=== PATIENT | female | born 1985 | race American Indian/Alaskan Native ===

== ENCOUNTER 2016-09-08 14:46 | Emergency (ER) | payer MEDICAID, OTHER ==
[2016-09-08 14:46] VITALS: BMI 26.4
[2016-09-08 14:57] VITALS: RESP 18; O2SAT 100
[2016-09-08] MEDS ORDERED: Sodium Chloride 0.9% 1,000 ML IV ONE (15:45)
--- NOTE | 2016-09-08 16:19 | C.PDOC ---
History Of Present Illness 31 year old patient, with a past medical history of Sifuentes's Syndrome, presents to the emergency department complaining of generally not feeling well, nausea and weakness for the past few days. Patient also complaining of nasal congestion from her seasonal allergies. Patient states she has an irregular period recently and lots of stress that she is dealing with. She's had similar symptoms before when she was stressed out. Patient denies fever, chills, headache, sore throat, shortness of breath, chest pain, abdominal pain, dysuria , vomiting, or dizziness. Time Seen by Provider: 09/08/16 15:34 Chief Complaint (Nursing): GI Problem History Per: Patient History/Exam Limitations: no limitations Onset/Duration Of Symptoms: Days (past few) Current Symptoms Are (Timing): Still Present Severity: Mild Pain Scale Rating Of: 3 Recent travel outside of the [place] States: No Past Medical History Reviewed: Historical Data, Nursing Documentation, Vital Signs Vital Signs: Last Vital Signs Temp 98.3 F 09/08/16 17:22 Pulse 82 09/08/16 17:22 Resp 18 09/08/16 17:22 BP 120/83 09/08/16 17:22 Pulse Ox 100 09/08/16 17:22 - [facility] Procedures OTHER SKIN & SUBQ I D (06/21/14) Family History: States: Unknown Family Hx - Social History Hx Tobacco Use: Yes (3-4 cigarettes a day) Hx Alcohol Use: Yes Hx Substance Use: No - Immunization History Hx Tetanus Toxoid Vaccination: No Hx Influenza Vaccination: Yes Hx Pneumococcal Vaccination: No Review Of Systems Except As Marked, All Systems Reviewed And Found Negative. Constitutional: Positive for: Weakness. Negative for: Fever, Chills ENT: Negative for: Throat Pain Cardiovascular: Negative for: Chest Pain Respiratory: Negative for: Shortness of Breath Gastrointestinal: Positive for: Nausea. Negative for: Vomiting, Abdominal Pain Genitourinary: Negative for: Dysuria Neurological: Negative for: Headache, Dizziness Physical Exam - Physical Exam Appears: Non-toxic, No Acute Distress Skin: Warm, Dry Head: Atraumatic, Normacephalic Eye(s): bilateral: Normal Inspection, EOMI Nose: Other (nasal congestion) Oral Mucosa: Moist Throat: Normal Neck: Normal ROM, Supple Chest: Symmetrical Cardiovascular: Rhythm Regular Respiratory: Normal Breath Sounds, No Rales, No Rhonchi, No Wheezing Gastrointestinal/Abdominal: Soft, No Tenderness, No Guarding, No Rebound Back: Normal Inspection, No CVA Tenderness Extremity: Normal ROM Neurological/Psych: Oriented x3, Normal Speech, Normal Cognition Gait: Steady ED Course And Treatment - Laboratory Results Result Diagrams: 09/08/16 16:28 09/08/16 16:28 O2 Sat by Pulse Oximetry: 100 (room air ) Pulse Ox Interpretation: Normal Progress Note: Plan: -Labs. -IV fluids Medical Decision Making Medical Decision Making: Patiuent feeling better. Has low WBC count. 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 Will d/c to follow up with PMD. Disposition Counseled Patient/Family Regarding: Studies Performed, Need For Followup - Disposition Disposition: HOME/ ROUTINE Disposition Time: 17:25 Condition: IMPROVED Additional Instructions: Please follow up with your doctor. Get extra rest, drink plenty fluids. Return to the ED with any other concerns. Instructions: Weakness (GEN) Forms: General Discharge Instructions - POA Present On Arrival: None - Clinical Impression Clinical Impression: Malaise and fatigue - Scribe Statement The provider has reviewed the documentation as recorded by the Nic Biswas Provider Attestation: All medical record entries made by the Manoloibe were at my direction and personally dictated by me. I have reviewed the chart and agree that the record accurately reflects my personal performance of the history, physical exam, medical decision making, and the department course for this patient. I have also personally directed, reviewed, and agree with the discharge instructions and disposition.
[2016-09-08 16:34] LABS: EOS # 0.1 K/uL (0.0-0.7); EOS % 5.4 % (0.0-4.0); HEMATOCRIT 38.1 % (34.0-47.0); LYMPH # 1.1 K/uL (1.0-4.3); LYMPH % 52.6 % (20.0-40.0); MEAN CELL VOLUME 84.8 fL (81.0-99.0); MEAN CORPUSCULAR HEMOGLOBIN 28.1 pg (27.0-31.0); MEAN CORPUSCULAR HGB CONC 33.1 g/dL (33.0-37.0); MEAN PLATELET VOLUME 8.4 fL (7.2-11.7); MONO # 0.5 K/uL (0.0-0.8); PLATELET COUNT 262 K/uL (130-400); RED CELL DISTRIBUTION WIDTH 14.2 % (11.5-14.5)
[2016-09-08 16:43] LABS: RBC URINE 61 /hpf (0-3); URINE BACTERIA MOD (<OCC); URINE BILIRUBIN NEGATIVE (NEGATIVE); URINE BLOOD 3+ (NEGATIVE); URINE COLOR Yellow (YELLOW); URINE GLUCOSE (UA) NORMAL (Normal); URINE KETONE TRACE mg/dL (NEGATIVE); URINE LEUKOCYTE ESTERASE NEG Leu/uL (Negative); URINE PROTEIN 1+ mg/dL (NEGATIVE); URINE UROBILINOGEN NORMAL mg/dL (0.2-1.0)
[2016-09-08 16:44] LABS: WBC URINE 5 /hpf (0-5)
[2016-09-08 16:51] LABS: CHLORIDE 103 mmol/L (98-107)
[2016-09-08 16:52] LABS: POTASSIUM 3.7 mmol/L (3.6-5.2); SODIUM 139 mmol/L (132-148)
[2016-09-08 16:54] LABS: GFR AFRICAN-AMERICAN > 60
[2016-09-08 16:55] LABS: BLOOD UREA NITROGEN 14 mg/dL (7-17); CALCIUM 8.6 mg/dl (8.6-10.4); CARBON DIOXIDE 27 mmol/L (22-30); GLUCOSE,RANDOM 72 mg/dL (65-105)
[2016-09-08 17:23] VITALS: BP 120/83; PULSE 82; TEMP 98.3
[2016-09-08 18:08] LABS: BASOPHIL 1 % (0-2); EOSINOPHIL 5 % (0-4); NEUTROPHIL 18 % (50-75); REACTIVE LYMPHOCYTES 1 % (0-0); TOTAL CELLS COUNTED 100
== END 2016-09-08 17:58 | disposition home or self-care (01) ==
LOC: C.ER 14:46
DX: R53.81 Other malaise (principal); R53.83 Other fatigue
CPT/HCPCS: 80048; 81001; 84703; 85025; 96360; 99285; J7040

== ENCOUNTER 2016-10-22 14:26 | Emergency (ER) | payer MEDICAID, OTHER ==
[2016-10-22 14:26] VITALS: BMI 26.4
--- NOTE | 2016-10-22 15:24 | C.PDOC ---
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 No change with PO intake or cough. States she has never had it evaluated in the past. Patient denies fevers, cough, shortness of breath, nausea/vomiting, or any other associated symptoms. No other complaints at this time. Chief Complaint (Nursing): Chest Pain History Per: Patient History/Exam Limitations: no limitations Current Symptoms Are (Timing): Still Present Severity: Moderate Past Medical History Reviewed: Historical Data, Nursing Documentation, Vital Signs Vital Signs: Last Vital Signs Temp 98.5 F 10/22/16 17:08 Pulse 87 10/22/16 17:08 Resp 18 10/22/16 17:08 BP 126/82 10/22/16 17:08 Pulse Ox 96 10/22/16 17:08 - [facility] Procedures OTHER SKIN & SUBQ I D (06/21/14) Family History: States: No Known Family Hx - Social History Hx Tobacco Use: Yes (3-4 cigarettes a day) Hx Alcohol Use: Yes Hx Substance Use: No - Immunization History Hx Tetanus Toxoid Vaccination: No Hx Influenza Vaccination: Yes Hx Pneumococcal Vaccination: No Review Of Systems Except As Marked, All Systems Reviewed And Found Negative. Constitutional: Negative for: Fever, Chills Cardiovascular: Positive for: Chest Pain. Negative for: Palpitations Respiratory: Negative for: Cough, Shortness of Breath Gastrointestinal: Negative for: Nausea, Vomiting Musculoskeletal: Negative for: Back Pain Physical Exam - Physical Exam Appears: Non-toxic, No Acute Distress Skin: Warm, Dry, No Rash Head: Atraumatic, Normacephalic Eye(s): bilateral: Normal Inspection, PERRL, EOMI Nose: Normal Throat: Normal Neck: Normal Cardiovascular: Rhythm Regular Respiratory: Normal Breath Sounds Gastrointestinal/Abdominal: Normal Exam Back: Normal Inspection Extremity: Normal ROM ED Course And Treatment - Laboratory Results Result Diagrams: 10/22/16 15:26 10/22/16 15:26 ECG: Interpreted By Me, Viewed By Me ECG Rhythm: Sinus Rhythm ECG Interpretation: No Acute Changes Rate From EC Disposition - Disposition Referrals: Deborah Guallpa, [Non-Staff] - Disposition: HOME/ ROUTINE Disposition Time: 16:45 Condition: GOOD Additional Instructions: Thank you for letting us take care of you today. Your provider was Dr. Syed. You were treated for noncardiac chest pain. The emergency medical care you received today was directed at your acute symptoms. If you were prescribed any medication, please fill it and take as directed. It may take several days for your symptoms to resolve. Return to the Emergency Department if your symptoms worsen, do not improve, or if you have any other problems. Please contact your doctor or call one of the physicians/clinics you have been referred to that are listed on the Patient Visit Information form that is included in your discharge packet. Bring any paperwork you were given at discharge with you along with any medications you are taking to your follow up visit. Our treatment cannot replace ongoing medical care by a primary care provider (PCP) outside of the emergency department. Thank you for allowing the [facility] team to be part of your care today. Follow up with your doctor in 2-3 days for re-evaluation. Instructions: Noncardiac Chest Pain (ED) - Clinical Impression Clinical Impression: Non-cardiac chest pain - Scribe Statement The provider has reviewed the documentation as recorded by the Nic Cunha All medical record entries made by the Manoloibleonel were at my direction and personally dictated by me. I have reviewed the chart and agree that the record accurately reflects my personal performance of the history, physical exam, medical decision making, and the department course for this patient. I have also personally directed, reviewed, and agree with the discharge instructions and disposition.
[2016-10-22 15:34] LABS: BASO % 0.9 % (0.0-2.0); EOS # 0.1 K/uL (0.0-0.7); EOS % 7.4 % (0.0-4.0); HEMATOCRIT 35.8 % (34.0-47.0); LYMPH # 0.8 K/uL (1.0-4.3); LYMPH % 48.1 % (20.0-40.0); MEAN CELL VOLUME 84.8 fL (81.0-99.0); MEAN CORPUSCULAR HEMOGLOBIN 28.2 pg (27.0-31.0); MEAN CORPUSCULAR HGB CONC 33.2 g/dL (33.0-37.0); MEAN PLATELET VOLUME 8.3 fL (7.2-11.7); MONO # 0.3 K/uL (0.0-0.8); MONO % 22.3 % (0.0-10.0); NRBC % 0.1 % (0.0-2.0); PLATELET COUNT 206 K/uL (130-400); RED CELL DISTRIBUTION WIDTH 13.5 % (11.5-14.5)
[2016-10-22 15:42] LABS: WHITE BLOOD COUNT 1.6 K/uL (4.8-10.8)
[2016-10-22 15:46] LABS: CHLORIDE 101 mmol/L (98-107); POTASSIUM 3.8 mmol/L (3.6-5.2); SODIUM 136 mmol/L (132-148)
[2016-10-22 15:48] LABS: AST/SGOT 21 U/L (14-36); BILIRUBIN,TOTAL 0.7 mg/dL (0.2-1.3); CARBON DIOXIDE 26 mmol/L (22-30); GFR AFRICAN-AMERICAN > 60
[2016-10-22 15:49] LABS: ALB/GLOB RATIO 1.1 (1.0-2.1); ALKALINE PHOSPHATASE 78 U/L (38-126); ALT/SGPT 24 U/L (9-52); BLOOD UREA NITROGEN 13 mg/dL (7-17); CALCIUM 8.5 mg/dl (8.6-10.4); GLUCOSE,RANDOM 74 mg/dL (65-105); TOTAL PROTEIN 6.7 g/dL (6.3-8.3)
--- NOTE | 2016-10-22 15:58 | RAD ---
HISTORY: chest pain COMPARISON: Chest x-ray performed 07/21/14 TECHNIQUE: Chest, one view. FINDINGS: LUNGS: The right costophrenic angle is excluded from view. No focal consolidation. Please note that chest x-ray has limited sensitivity for the detection of pulmonary masses. PLEURA: No significant pleural effusion identified. No definite pneumothorax . CARDIOVASCULAR: The cardiomediastinal silhouette appears within normal limits of size. OSSEOUS STRUCTURES: No acute osseous abnormality identified. VISUALIZED UPPER ABDOMEN: Unremarkable. OTHER FINDINGS: None. IMPRESSION: No focal consolidation, significant pleural effusion, or definite pneumothorax identified.
[2016-10-22 16:00] LABS: BASOPHIL 2 % (0-2); EOSINOPHIL 6 % (0-4); NEUTROPHIL 24 % (50-75); TOTAL CELLS COUNTED 50
[2016-10-22 17:09] VITALS: BP 126/82; PULSE 87; RESP 18; TEMP 98.5; O2SAT 96
--- NOTE | 2016-10-25 08:41 | CARD ---
APPROVED REPORT EKG Measurement Heart [id number] <Conclusion> Normal sinus rhythm Normal ECG
== END 2016-10-22 17:09 | disposition home or self-care (01) ==
LOC: C.ER 14:26
DX: R07.89 Other chest pain (principal)

== ENCOUNTER 2017-02-15 21:02 | Emergency (ER) | payer OTHER ==
[2017-02-15 21:03] VITALS: BMI 26.4
[2017-02-15 21:47] LABS: BASO % 0.4 % (0.0-2.0); HEMATOCRIT 35.6 % (34.0-47.0); LYMPH # 0.8 K/uL (1.0-4.3); LYMPH % 29.7 % (20.0-40.0); MEAN CELL VOLUME 85.9 fL (81.0-99.0); MEAN CORPUSCULAR HEMOGLOBIN 29.1 pg (27.0-31.0); MEAN CORPUSCULAR HGB CONC 33.8 g/dL (33.0-37.0); MEAN PLATELET VOLUME 8.3 fL (7.2-11.7); MONO # 0.5 K/uL (0.0-0.8); MONO % 18.3 % (0.0-10.0); RED CELL DISTRIBUTION WIDTH 14.3 % (11.5-14.5)
[2017-02-15 21:48] LABS: CHLORIDE 100 mmol/L (98-107); POTASSIUM 2.9 mmol/L (3.6-5.2); SODIUM 135 mmol/L (132-148)
[2017-02-15 21:49] LABS: WHITE BLOOD COUNT 2.8 K/uL (4.8-10.8)
[2017-02-15 21:50] LABS: ALB/GLOB RATIO 1.2 (1.0-2.1); AST/SGOT 19 U/L (14-36); BILIRUBIN,TOTAL 0.4 mg/dL (0.2-1.3); CARBON DIOXIDE 24 mmol/L (22-30); GFR AFRICAN-AMERICAN > 60; TOTAL PROTEIN 7.4 g/dL (6.3-8.3)
[2017-02-15 21:51] LABS: ALCOHOL SERUM < 10 mg/dl (0-10); ALKALINE PHOSPHATASE 79 U/L (38-126); ALT/SGPT 33 U/L (9-52); BLOOD UREA NITROGEN 13 mg/dL (7-17); CALCIUM 8.8 mg/dl (8.6-10.4); GLUCOSE,RANDOM 93 mg/dL (65-105)
[2017-02-15 22:17] LABS: RBC URINE 3 /hpf (0-3); URINE BACTERIA OCC (<OCC); URINE BILIRUBIN NEGATIVE (NEGATIVE); URINE BLOOD 1+ (NEGATIVE); URINE COLOR Yellow (YELLOW); URINE GLUCOSE (UA) NORMAL (Normal); URINE KETONE NEGATIVE (NEGATIVE); URINE LEUKOCYTE ESTERASE NEG Leu/uL (Negative); URINE PROTEIN NEGATIVE (NEGATIVE); URINE UROBILINOGEN NORMAL mg/dL (0.2-1.0); WBC URINE < 1 /hpf (0-5)
[2017-02-15] MEDS ORDERED: Potassium Chloride 20 mEq ER Tab PO STA (22:20)
[2017-02-15] MEDS ORDERED: Potassium Chloride 20 mEq ER Tab PO ONE (22:44)
--- NOTE | 2017-02-16 00:05 | C.PDOC ---
Time Seen by Provider: 02/15/17 21:42 Chief Complaint (Nursing): Psychiatric Evaluation History Per: Patient Onset/Duration Of Symptoms: Days Current Symptoms Are (Timing): Still Present Suicide/Self Injury Attempted (Context): None Modifying Factor(s): Marijuana Severity: Moderate Associated Symptoms: Agitation, Depression, Suicidal Thoughts Additional History Per: Prior Records Past Medical History Reviewed: Historical Data, Nursing Documentation, Vital Signs Vital Signs: Last Vital Signs Temp 98 F 02/15/17 21:10 Pulse 96 H 02/15/17 21:10 Resp 18 02/15/17 21:10 BP 126/85 02/15/17 21:10 Pulse Ox 99 02/16/17 00:06 - Medical History Other PMH: Sifuentes Syndrome Surgical History: No Surg Hx - [facility] Procedures OTHER SKIN & SUBQ I D (06/21/14) Family History: States: Unknown Family Hx - Social History Hx Tobacco Use: Yes (3-4 cigarettes a day) Hx Alcohol Use: Yes Hx Substance Use: No - Immunization History Hx Tetanus Toxoid Vaccination: No Hx Influenza Vaccination: No Hx Pneumococcal Vaccination: No Review Of Systems Except As Marked, All Systems Reviewed And Found Negative. Constitutional: Negative for: Fever Cardiovascular: Negative for: Chest Pain Respiratory: Negative for: Shortness of Breath Gastrointestinal: Negative for: Vomiting, Abdominal Pain Musculoskeletal: Negative for: Neck Pain Skin: Negative for: Rash Neurological: Negative for: Weakness, Numbness Psych: Negative for: Psychosis Physical Exam - Physical Exam Appears: Non-toxic, No Acute Distress Skin: Normal Color, Warm, Dry, No Rash Head: Atraumatic, Normacephalic Eye(s): bilateral: PERRL, EOMI Neck: Normal ROM, Supple Cardiovascular: Rhythm Regular Respiratory: Normal Breath Sounds, No Accessory Muscle Use Gastrointestinal/Abdominal: Soft, No Tenderness Extremity: Normal ROM Neurological/Psych: Oriented x3, Normal Motor, Normal Sensation ED Course And Treatment - Laboratory Results Result Diagrams: 02/15/17 21:33 02/15/17 21:33 Interpretation Of Abnormal: Hypokalemia Urine POC: Negative ECG: Interpreted By Me, Viewed By Me ECG Rhythm: Sinus Rhythm ECG Interpretation: No Acute Changes Rate From EC O2 Sat by Pulse Oximetry: 99 Pulse Ox Interpretation: Normal Progress Note: Patient is medically stable for psychiatric evaluation and/or admission. 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
--- NOTE | 2017-02-16 08:12 | RAD ---
HISTORY: MEDICAL CLEARANCE. COMPARISON: 10/22/2016 FINDINGS: LUNGS: No active pulmonary disease. PLEURA: No significant pleural effusion identified, no pneumothorax apparent. CARDIOVASCULAR: Normal. OSSEOUS STRUCTURES: No significant abnormalities. VISUALIZED UPPER ABDOMEN: Normal. OTHER FINDINGS: None. IMPRESSION: No active disease. No interval pathology noted
[2017-02-16] MEDS ORDERED: Potassium Chloride 20 mEq/15 ml LIQ UD PO STA (10:08)
[2017-02-16] MEDS ORDERED: Tmp-Smz 800 mg-160 mg DS Tab PO STA (10:10)
[2017-02-16] MEDS ORDERED: Potassium Chloride 20 mEq/15 ml LIQ UD ONE (10:31)
[2017-02-16] MEDS ORDERED: Tmp-Smz 800 mg-160 mg DS Tab ONE (10:31)
[2017-02-16 14:11] VITALS: BP 129/89; PULSE 90; RESP 18; TEMP 98.2; O2SAT 99
--- NOTE | 2017-02-17 22:41 | CARD ---
APPROVED REPORT EKG Measurement Heart [id number] IN [id number] [id number] <Conclusion> Normal sinus rhythm Normal ECG
== END 2017-02-16 14:34 | disposition home or self-care (01) ==
LOC: C.ER 21:02 → SUPCPDRO 21:02 → C.ER 02-16 14:34
DX: R45.851 Suicidal ideations (principal); E87.6 Hypokalemia

== ENCOUNTER 2017-04-29 10:40 | Emergency (ER) | payer OTHER ==
[2017-04-29 10:41] VITALS: BMI 26.4
--- NOTE | 2017-04-29 12:00 | C.PDOC ---
History Of Present Illness 31 year old female presents to the ED with two complaints. Patient complains of chest pain that worsens when she sneezes. Patient denies cough, shortness of breath, nausea, vomiting. Patient also complains of an ingrown toenail that has been ongoing for around 1 month. She denies trauma/injury to the site as well as history of DVT and PE. Time Seen by Provider: 04/29/17 11:22 Chief Complaint (Nursing): Abnormal Skin Integrity History Per: Patient History/Exam Limitations: no limitations Onset/Duration Of Symptoms: Days Current Symptoms Are (Timing): Still Present Additional History Per: Patient Past Medical History Reviewed: Historical Data, Nursing Documentation, Vital Signs Vital Signs: Last Vital Signs Temp 98.2 F 04/29/17 10:55 Pulse 82 04/29/17 10:55 Resp 20 04/29/17 10:55 BP 122/87 04/29/17 10:55 Pulse Ox 97 04/29/17 12:55 - Medical History PMH: No Chronic Diseases Denies: Diabetes, Hepatitis, HIV, HTN, Chronic Kidney Disease, Seizures, Sexually Transmitted Disease Surgical History: No Surg Hx - [facility] Procedures OTHER SKIN & SUBQ I D (06/21/14) Family History: States: Unknown Family Hx - Social History Hx Tobacco Use: Yes (3-4 cigarettes a day) Hx Alcohol Use: Yes Hx Substance Use: No - Immunization History Hx Tetanus Toxoid Vaccination: No Hx Influenza Vaccination: No Hx Pneumococcal Vaccination: No Review Of Systems Cardiovascular: Positive for: Chest Pain Respiratory: Negative for: Cough, Shortness of Breath Gastrointestinal: Negative for: Nausea, Vomiting Skin: Positive for: Other (ingrown toenail ) Physical Exam - Physical Exam Appears: Non-toxic, No Acute Distress Skin: Normal Color, Warm, Dry, No Other (cellulitic process or swelling to skin around toes) Oral Mucosa: Moist Neck: Supple Chest: Symmetrical, No Deformity, No Tenderness Cardiovascular: Rhythm Regular, No Murmur Respiratory: Normal Breath Sounds, No Rales, No Rhonchi, No Wheezing Extremity: Normal ROM, Capillary Refill (less than 2 seconds ) Neurological/Psych: Oriented x3, Normal Speech, Normal Cognition Gait: Steady ED Course And Treatment ECG Rhythm: Sinus Rhythm Interpretation Of ECG: Normal Sinus Rhythm at rate 78bpm. Normal intervals. Normal axis. No ST/T wave abnormalities. Rate From EC O2 Sat by Pulse Oximetry: 97 (on RA) Pulse Ox Interpretation: Normal - Other Rad CXR X-Ray: Interpreted by Me, Viewed By Me, Read By Radiologist Interpretation: HISTORY: COMPARISON: 02/16/2017. TECHNIQUE: Chest PA and lateral. FINDINGS: LINES AND TUBES: None. LUNG AND PLEURA: The lungs are well inflated and clear. HEART AND MEDIASTINUM: The heart is not enlarged. The hilar and mediastinal contours are within normal limits. SKELETAL STRUCTURES: The bony structures are within normal limits for the patient's age. VISUALIZED UPPER ABDOMEN: Normal. OTHER FINDINGS: None. IMPRESSION: No active pulmonary disease. Medical Decision Making Medical Decision Making: Assessment: toe pain and atypical chest pain Progress: EKG CXR ordered and reviewed. Motrin PO administered. CXR preliminary read is negative. On reassessment, patient is resting comfortably, showing no signs of distress and is stable for discharge. Patient will be given Rx for Naproxen and is advised to follow up with referred wildlife veterinarian within 1-2 days for further evaluation. Disposition Counseled Patient/Family Regarding: Studies Performed, Diagnosis, Need For Followup, Rx Given - Disposition Disposition Time: 12:39 Condition: STABLE Additional Instructions: follow up with podiatristin 2 days. List provided call to make an appointment take pain medication as needed return to hospital if symptoms worsens or progress Prescriptions: Naproxen [Naprosyn] 500 mg PO BID PRN #16 tab PRN Reason: Pain, Moderate (4-7) Instructions: Chest Pain (ED) Forms: [facility] (Maltese), General Discharge Instructions - Clinical Impression Clinical Impression: Non-cardiac chest pain, Toe pain - Scribe Statement The provider has reviewed the documentation as recorded by the Scribe (Lorraine Biswas) Provider Attestation: All medical record entries made by the Scribe were at my direction and personally dictated by me. I have reviewed the chart and agree that the record accurately reflects my personal performance of the history, physical exam, medical decision making, and the department course for this patient. I have also personally directed, reviewed, and agree with the discharge instructions and disposition.
--- NOTE | 2017-04-29 12:22 | RAD ---
HISTORY: COMPARISON: 02/16/2017 TECHNIQUE: Chest PA and lateral FINDINGS: LINES AND TUBES: None. LUNG AND PLEURA: The lungs are well inflated and clear. HEART AND MEDIASTINUM: The heart is not enlarged. The hilar and mediastinal contours are within normal limits. SKELETAL STRUCTURES: The bony structures are within normal limits for the patient's age. VISUALIZED UPPER ABDOMEN: Normal. OTHER FINDINGS: None. IMPRESSION: No active pulmonary disease.
[2017-04-29 13:03] VITALS: BP 112/84; PULSE 73; RESP 18; TEMP 98; O2SAT 96
--- NOTE | 2017-04-30 18:40 | CARD ---
APPROVED REPORT EKG Measurement Heart [id number] NM [id number] [id number] <Conclusion> Normal sinus rhythm with sinus arrhythmia Normal ECG
== END 2017-04-29 13:03 | disposition home or self-care (01) ==
LOC: C.ER 10:40
DX: R07.89 Other chest pain (principal); M79.676 Pain in unspecified toe(s)

== ENCOUNTER 2017-06-30 13:06 | Emergency (ER) | payer OTHER ==
[2017-06-30 13:06] VITALS: BMI 26.4
[2017-06-30 13:38] VITALS: BP 114/80; PULSE 71; RESP 20; TEMP 98.4; O2SAT 100
--- NOTE | 2017-06-30 14:34 | C.PDOC ---
History Of Present Illness Pt c/o right ring finger pain. Denies injury. Time Seen by Provider: 06/30/17 14:10 Chief Complaint (Nursing): Finger,Hand,&Wrist History Per: Patient Onset/Duration Of Symptoms: Days, Waxing/Waning Current Symptoms Are (Timing): Still Present Quality: "Pain" Severity: Moderate Hands/Wrist (Pic): 1 - pain Exacerbating Factor(s): Strenuous Use Of Affected Area Additional History Per: Prior Records Past Medical History Reviewed: Historical Data, Nursing Documentation, Vital Signs Vital Signs: Last Vital Signs Temp 98.4 F 06/30/17 13:36 Pulse 71 06/30/17 13:36 Resp 20 06/30/17 13:36 BP 114/80 06/30/17 13:36 Pulse Ox 100 06/30/17 13:36 - Medical History PMH: No Chronic Diseases - [facility] Procedures OTHER SKIN & SUBQ I D (06/21/14) Family History: States: Unknown Family Hx - Social History Hx Tobacco Use: Yes (3-4 cigarettes a day) Hx Alcohol Use: Yes Hx Substance Use: No - Immunization History Hx Tetanus Toxoid Vaccination: No Hx Influenza Vaccination: No Hx Pneumococcal Vaccination: No Review Of Systems Except As Marked, All Systems Reviewed And Found Negative. Constitutional: Negative for: Fever Cardiovascular: Negative for: Chest Pain Respiratory: Negative for: Shortness of Breath Gastrointestinal: Negative for: Vomiting, Abdominal Pain Musculoskeletal: Positive for: Hand Pain (right). Negative for: Neck Pain Skin: Negative for: Rash Neurological: Negative for: Weakness, Numbness Physical Exam - Physical Exam Appears: Non-toxic, No Acute Distress Skin: Normal Color, Warm, Dry, No Rash Head: Atraumatic, Normacephalic Eye(s): bilateral: PERRL, EOMI Neck: Normal ROM, Supple Extremity: Normal ROM, Tenderness (mild at PIP joint of right ring finger), Capillary Refill (wnl) Pulses: Right Radial: Normal Neurological/Psych: Oriented x3, Normal Motor, Normal Sensation ED Course And Treatment O2 Sat by Pulse Oximetry: 100 Disposition Counseled Patient/Family Regarding: Diagnosis, Need For Followup, Rx Given - Disposition Referrals: Keanu Burrows MD [Staff Provider] - Disposition: HOME/ ROUTINE Disposition Time: 14:34 Condition: STABLE Additional Instructions: Follow up with your doctor for further evaluation and treatment. Return to the ER if you develop worsening of symptoms or if you have any other concerns. Prescriptions: Ibuprofen [Motrin Tab] 600 mg PO TID PRN #30 tab PRN Reason: Pain, Moderate (4-7) Instructions: Kash Zarate (DC) Forms: General Discharge Instructions - Clinical Impression Clinical Impression: Pain involving joint of finger of right hand
== END 2017-06-30 14:45 | disposition home or self-care (01) ==
LOC: C.ER 13:06
DX: M79.644 Pain in right finger(s) (principal)

== ENCOUNTER 2017-07-05 11:33 | Emergency (ER) | payer OTHER ==
[2017-07-05 11:33] VITALS: BMI 26.4
[2017-07-05 12:19] VITALS: RESP 18; O2SAT 98
--- NOTE | 2017-07-05 13:45 | C.PDOC ---
History Of Present Illness 32 y/o female presents to the ED for evaluation, stating, "my throat is all messed up." Patient reports pain with swallowing. She states she took Motrin and Mucinex two days ago without improvement. Patient denies fever, chills, headache, neck pain, cough, congestion, or recent antibiotics use. Time Seen by Provider: 07/05/17 12:35 Chief Complaint (Nursing): ENT Problem History Per: Patient History/Exam Limitations: None Onset/Duration Of Symptoms: Hrs Current Symptoms Are (Timing): Still Present Past Medical History Reviewed: Historical Data, Nursing Documentation, Vital Signs Vital Signs: Last Vital Signs Temp 97.8 F 07/05/17 13:50 Pulse 102 H 07/05/17 13:50 Resp 18 07/05/17 13:50 BP 119/78 07/05/17 13:50 Pulse Ox 98 07/05/17 16:18 - Medical History PMH: No Chronic Diseases Denies: HIV, HTN, Chronic Kidney Disease, Seizures, Sexually Transmitted Disease Surgical History: No Surg Hx - [facility] Procedures OTHER SKIN & SUBQ I D (06/21/14) Family History: States: Unknown Family Hx - Social History Hx Tobacco Use: Yes (3-4 cigarettes a day) Hx Alcohol Use: Yes Hx Substance Use: No - Immunization History Hx Tetanus Toxoid Vaccination: No Hx Influenza Vaccination: No Hx Pneumococcal Vaccination: No Review Of Systems ENT: Positive for: Throat Pain. Negative for: Nose Congestion Respiratory: Negative for: Cough Musculoskeletal: Negative for: Neck Pain Neurological: Negative for: Headache Physical Exam - Physical Exam Appears: Non-toxic, No Acute Distress Skin: Normal Color, Warm, Dry Head: Atraumatic, Normacephalic Eye(s): bilateral: Normal Inspection, EOMI Ear(s): Bilateral: Normal Nose: Normal Oral Mucosa: Moist Throat: Other (tonsillar swelling and exudates, right>left. no difficulty with swallowing ) Neck: Normal ROM, Supple Lymphatic: Other (submental lymphadenopathy) Chest: Symmetrical, No Deformity, No Tenderness Cardiovascular: Rhythm Regular, No Murmur Respiratory: Normal Breath Sounds, No Rales, No Rhonchi, No Wheezing, Other ( speaking in full sentences ) Extremity: Normal ROM, Capillary Refill (less than 2 seconds ) Neurological/Psych: Oriented x3, Normal Speech, Normal Cognition ED Course And Treatment O2 Sat by Pulse Oximetry: 98 (on RA) Pulse Ox Interpretation: Normal Progress Note: Amoxicillin PO and Lidocaine 2% Viscous PO administered. On reassessment, patient is resting comfortably, showing no signs of distress and reports an improvement in her pain. Patient is stable for discharge and is advised to follow up with her PMD within 1-2 days for further evaluation. Disposition - Disposition Referrals: Keanu Burrows MD [Staff Provider] - Fam Monte MD [Staff Provider] - Disposition: HOME/ ROUTINE Disposition Time: 13:42 Condition: STABLE Additional Instructions: Follow up with your primary medical doctor or clinic in 2-5 days for further evaluation. Take medications as prescribed. Return to the emergency department at any time if symptoms persist or worsen. 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 - Scribe Statement The provider has reviewed the documentation as recorded by the Scribe (Lorraine Biswas) All medical record entries made by the Scribe were at my direction and personally dictated by me. I have reviewed the chart and agree that the record accurately reflects my personal performance of the history, physical exam, medical decision making, and the department course for this patient. I have also personally directed, reviewed, and agree with the discharge instructions and disposition.
[2017-07-05 13:56] VITALS: BP 119/78; PULSE 102; TEMP 97.8
== END 2017-07-05 14:04 | disposition home or self-care (01) ==
LOC: C.ER 11:33
DX: J03.90 Acute tonsillitis, unspecified (principal)

== ENCOUNTER 2017-12-06 14:45 | Emergency (ER) | payer MEDICAID, OTHER ==
[2017-12-06 14:45] VITALS: BMI 26.4
[2017-12-06 16:19] LABS: BASO % 0.9 % (0.0-2.0); EOS % 1.3 % (0.0-4.0); HEMOGLOBIN 11.9 g/dL (11.0-16.0); LYMPH # 1.2 K/uL (1.0-4.3); LYMPH % 46.9 % (20.0-40.0); MEAN CELL VOLUME 85.8 fL (81.0-99.0); MEAN CORPUSCULAR HEMOGLOBIN 28.8 pg (27.0-31.0); MEAN CORPUSCULAR HGB CONC 33.6 g/dL (33.0-37.0); MEAN PLATELET VOLUME 8.1 fL (7.2-11.7); MONO # 0.4 K/uL (0.0-0.8); MONO % 13.8 % (0.0-10.0); NEUT % 37.1 % (50.0-75.0); NRBC % 0.2 % (0.0-2.0); RBC 4.14 Mil/uL (3.80-5.20); RED CELL DISTRIBUTION WIDTH 13.3 % (11.5-14.5); WHITE BLOOD COUNT 2.6 K/uL (4.8-10.8)
--- NOTE | 2017-12-06 16:30 | C.PDOC ---
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 pt sts pain worse with movement. pt has had this pain several times and came to ed for eval. several times. pt has not taken anything for pain. no cough. pt stopped ocp several months ago. pt has appt with pmd tomorrow for regular check up. pt reports being under stress. Time Seen by Provider: 12/06/17 15:14 Chief Complaint (Nursing): Chest Pain History Per: Patient History/Exam Limitations: no limitations Onset/Duration Of Symptoms: Hrs Current Symptoms Are (Timing): Still Present Severity: Moderate Quality: Sharp Past Medical History Reviewed: Historical Data, Nursing Documentation, Vital Signs Vital Signs: Last Vital Signs Temp 97.1 F L 12/06/17 18:05 Pulse 60 12/06/17 18:05 Resp 18 12/06/17 18:05 BP 116/79 12/06/17 18:05 Pulse Ox 98 12/08/17 11:26 - Medical History PMH: Denies: HIV, HTN, Chronic Kidney Disease, Seizures, Sexually Transmitted Disease Other PMH: Sifuentes Syndrome Surgical History: No Surg Hx - [facility] Procedures OTHER SKIN & SUBQ I D (06/21/14) Family History: States: No Known Family Hx - Social History Hx Tobacco Use: Yes (3-4 cigarettes a day) Hx Alcohol Use: Yes Hx Substance Use: No - Immunization History Hx Tetanus Toxoid Vaccination: No Hx Influenza Vaccination: No Hx Pneumococcal Vaccination: No Review Of Systems Cardiovascular: Positive for: Chest Pain Respiratory: Negative for: Cough, Shortness of Breath Gastrointestinal: Negative for: Vomiting, Abdominal Pain Neurological: Negative for: Weakness, Numbness Physical Exam - Physical Exam Appears: Non-toxic, No Acute Distress Skin: Normal Color, Warm, Dry Head: Atraumatic, Normacephalic Eye(s): bilateral: Normal Inspection Neck: Supple Chest: Symmetrical, No Deformity, No Tenderness Cardiovascular: Rhythm Regular, No Murmur Respiratory: Normal Breath Sounds, No Rales, No Rhonchi, No Wheezing Gastrointestinal/Abdominal: Soft, No Tenderness Extremity: No Pedal Edema, No Calf Tenderness Neurological/Psych: Oriented x3, Normal Speech, Normal Cognition ED Course And Treatment - Laboratory Results Result Diagrams: 12/06/17 16:10 12/06/17 16:10 O2 Sat by Pulse Oximetry: 98 (RA) Pulse Ox Interpretation: Normal - Radiology CXR: Interpreted by Me, Viewed By Me CXR Interpretation: Yes: No Acute Disease Medical Decision Making Medical Decision Making: pt with repeated episodes of cp, seen in ed multiple times. trop neg, ekg normal. ddimer neg. cxr neg. discussed with Dr Burrows- pt has appt to see him tomorrow. will d/c Disposition Discussed With .: Keanu Burrows Doctor Will See Patient In The: Office Counseled Patient/Family Regarding: Studies Performed, Diagnosis, Need For Followup - Disposition Referrals: [facility] [Outside] Keanu Burrows MD [Staff Provider] - Disposition: HOME/ ROUTINE Disposition Time: 17:50 Condition: IMPROVED Additional Instructions: Please follow up with Dr Burrows tomorrow. Return to ER for any worse symptoms. FOr stress, please make appt at [facility]. 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 - Scribe Statement The provider has reviewed the documentation as recorded by the Manoloibleonel Ruby Provider Attestation All medical record entries made by the Manoloibe were at my direction and personally dictated by me. I have reviewed the chart and agree that the record accurately reflects my personal performance of the history, physical exam, medical decision making, and the department course for this patient. I have also personally directed, reviewed, and agree with the discharge instructions and disposition.
[2017-12-06 16:51] LABS: ALB/GLOB RATIO 1.3 (1.0-2.1); ALT/SGPT 41 U/L (9-52); AST/SGOT 22 U/L (14-36); BLOOD UREA NITROGEN 13 mg/dL (7-17); CALCIUM 9.1 mg/dl (8.6-10.4); GFR AFRICAN-AMERICAN > 60; GFR NON-AFRICAN AMERICAN > 60
[2017-12-06 18:34] VITALS: BP 116/79; PULSE 60; RESP 18; TEMP 97.1
[2017-12-06 19:07] VITALS: O2SAT 98
--- NOTE | 2017-12-07 11:46 | RAD ---
HISTORY: chest pain COMPARISON: Chest x-ray 04/29/2017 TECHNIQUE: Chest PA and lateral FINDINGS: LUNGS: No focal consolidation is seen. PLEURA: No pleural effusion is identified. CARDIOVASCULAR: Heart size is within normal limits. OSSEOUS STRUCTURES: No acute fracture identified. VISUALIZED UPPER ABDOMEN: Unremarkable. OTHER FINDINGS: None. IMPRESSION: No acute cardiopulmonary process seen.
--- NOTE | 2017-12-07 14:34 | CARD ---
APPROVED REPORT Date of service: 12/06/2017 EKG Measurement Heart [id number] <Conclusion> Sinus bradycardia with sinus arrhythmia Otherwise normal ECG
== END 2017-12-06 18:42 | disposition home or self-care (01) ==
LOC: C.ER 14:45
DX: R07.89 Other chest pain (principal)
CPT/HCPCS: 71046; 80053; 84484; 85025; 85378; 93005; 96374; 99284; J1885

== ENCOUNTER 2018-04-06 15:33 | Emergency (ER) | payer MEDICAID, OTHER ==
[2018-04-06 15:33] VITALS: BMI 26.4
[2018-04-06 15:59] VITALS: TEMP 98.2
[2018-04-06 16:52] LABS: SQUAMOUS EPITHIAL 15 /hpf (0-5); URINE BACTERIA RARE (<OCC); URINE BILIRUBIN NEGATIVE (NEGATIVE); URINE BLOOD 1+ (NEGATIVE); URINE CLARITY Clear (Clear); URINE COLOR Yellow (YELLOW); URINE GLUCOSE (UA) NORMAL (Normal); URINE LEUKOCYTE ESTERASE TRACE Leu/uL (Negative); URINE PROTEIN NEGATIVE (NEGATIVE); URINE UROBILINOGEN NORMAL mg/dL (0.2-1.0)
--- NOTE | 2018-04-06 17:23 | C.PDOC ---
History Of Present Illness 32 y/o female presents to the ED complaining of skin irritation to the clitoral and vaginal area for 5-10 days. She describes "it sampson when urine touches it." Denies any rough sex or oral sex. Patient states she rinsed the area with hydrogen peroxide. Denies any dysuria, frequency, or urinary incontinence. No fevers or chills. Time Seen by Provider: 04/06/18 16:11 Chief Complaint (Nursing): Female Genitourinary History Per: Patient History/Exam Limitations: no limitations Onset/Duration Of Symptoms: Days Current Symptoms Are (Timing): Still Present Quality Of Discomfort: "Pain" Associated Symptoms: denies: Fever, Chills, Vomiting, Urinary Symptoms Past Medical History Reviewed: Historical Data, Nursing Documentation, Vital Signs Vital Signs: Last Vital Signs Temp 98.2 F 04/06/18 15:56 Pulse 88 04/06/18 15:56 Resp 20 04/06/18 15:56 BP 108/72 04/06/18 15:56 Pulse Ox 96 04/06/18 15:56 - Medical History PMH: Denies: HIV, HTN, Chronic Kidney Disease, Seizures, Sexually Transmitted Disease Other PMH: Sifuentes syndrome, folliculitis - [facility] Procedures OTHER SKIN & SUBQ I D (06/21/14) Family History: States: Unknown Family Hx - Social History Hx Tobacco Use: Yes (3-4 cigarettes a day) Hx Alcohol Use: Yes Hx Substance Use: No - Immunization History Hx Tetanus Toxoid Vaccination: No Hx Influenza Vaccination: No Hx Pneumococcal Vaccination: No Review Of Systems Constitutional: Negative for: Fever, Chills Genitourinary: Positive for: Other (Skin irritation to clitoral/vaginal area, worse when urine present). Negative for: Dysuria, Frequency, Incontinence, Vaginal Discharge, Vaginal Bleeding Skin: Negative for: Rash Physical Exam - Physical Exam Appears: Non-toxic, No Acute Distress Skin: No Rash Head: Normacephalic Eye(s): bilateral: PERRL, EOMI Chest: Symmetrical Respiratory: No Accessory Muscle Use, Other (no respiratory distress) Pelvic: No Normal External Exam (multiple firm area consistent w/ingrown pubic hair to the mons pubis and labia, several un-roofed and ulcerated, no purulent discharge, no vesicles. ), No Cervical Motion Tenderness, No Adnexal Tenderness, Other (clitoris appears normal, no erythema or abscess) Extremity: Bilateral: Normal Color And Temperature, Normal ROM Neurological/Psych: Oriented x3, Normal Speech ED Course And Treatment - Laboratory Results Urine POC: Negative O2 Sat by Pulse Oximetry: 96 (RA) Pulse Ox Interpretation: Normal Medical Decision Making Medical Decision Making: Initial Plan: UA and urine culture sent. UA shows trace leuks, + RBC. Disposition Counseled Patient/Family Regarding: Studies Performed, Diagnosis, Need For Followup - Disposition Referrals: [facility] [Outside] Disposition: HOME/ ROUTINE Disposition Time: 19:09 Condition: GOOD Additional Instructions: Please [facility] up in [facility]. Call for appointment. Take antibiotics as prescribed. Apply topical antibiotic ointment as prescribed. Warm compresses to lesions in pubic area. Apply warm compresses to lesions. 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 - Scribe Statement The provider has reviewed the documentation as recorded by the Nic Blanco All medical record entries made by the Nic were at my direction and personally dictated by me. I have reviewed the chart and agree that the record accurately reflects my personal performance of the history, physical exam, medical decision making, and the department course for this patient. I have also personally directed, reviewed, and agree with the discharge instructions and disposition.
[2018-04-06 19:24] VITALS: BP 122/68; PULSE 72; RESP 18
[2018-04-08 13:16] VITALS: O2SAT 96
== END 2018-04-06 19:24 | disposition home or self-care (01) ==
LOC: C.ER 15:33
DX: L73.9 Follicular disorder, unspecified (principal)